=== PATIENT | male | born 1965 ===

== ENCOUNTER 2017-11-30 10:35 | Day surgery (SDC) | payer MEDICAID ==
[2017-11-26 12:06] VITALS: BMI 28.8
[2017-11-30] MEDS ORDERED: Gentamicin 160 MG in Sodium Chloride 0.9% 100 ML IVPB ONE (12:00)
[2017-11-30] MEDS ORDERED: Iohexol 240 (50 ml) ONE (12:11)
[2017-11-30] MEDS ORDERED: Ciprofloxacin 400mg/200ml D5W 400 MG/200 ML BAG IVPB ONE (12:11)
[2017-11-30] MEDS ORDERED: Lidocaine 2% Jelly (Uro-Jet) ONE (12:11)
[2017-11-30] MEDS ORDERED: Propofol 10 mg/ml Inj (20 ML) ONE (12:16)
[2017-11-30] MEDS ORDERED: Midazolam 2 MG/2 ML VIAL ONE (12:16)
--- NOTE | 2017-11-30 12:44 | PCM.SURG1 ---
Surgeon's Initial Post Op Note - Surgeon's Notes Surgeon: [facility] Sales Representative: MAGDY Type of Anesthesia: General LMA Anesthesia Administered By: Staff Pre-Operative Diagnosis: Left oreteral stent Operative Findings: stent Post-Operative Diagnosis: same Operation Performed: Cysto removal of stent Specimen/Specimens Removed: stent Estimated Blood Loss: EBL {In ML}: 0 Blood Products Given: N/A Drains Used: No Drains Post-Op Condition: Good Date of Surgery/Procedure: 11/30/17 Time of Surgery/Procedure: 12:44
[2017-11-30] MEDS ORDERED: HYDROmorphone 0.5 mg/0.5 ml ISec IVP PRN (12:47)
[2017-11-30 13:50] VITALS: RESP 16; TEMP 97.8
[2017-11-30 14:31] VITALS: BP 118/86; PULSE 68; O2SAT 98
--- NOTE | 2017-12-01 05:08 | OP ---
PROCEDURE DATE: 11/30/2017 PREOPERATIVE DIAGNOSIS: Left ureteral stent, status post lithotripsy. POSTOPERATIVE DIAGNOSIS: Left ureteral stent, status post lithotripsy.. PROCEDURE: Cystoscopy and removal of stent. FINDINGS: Stent protruding from the left ureteral orifice. No evidence of calculi in the bladder. DESCRIPTION OF PROCEDURE: The procedure is as follows: The patient was draped and prepped in the usual manner after he was asked to sign a detailed informed consent explaining all risks, limitations, and complications of this procedure. He is aware that he may have colic after the procedure and that the remaining stones in the kidney may pass and cause obstruction in the future requiring reinsertion of a stent. Nonetheless, he insists the stent be removed. The patient was brought into the room, and after prophylactic antibiotic, cystoscoped, a #21 Storz panendoscope. The pendulous and membranous urethra were normal. The prostatic urethra was normal. The bladder was entered atraumatically. There was a stent visualized. There were no stones within the bladder. The tip of the stent was grasped and removed. The patient tolerated the procedure well. He was sent to the recovery area in good condition. He was told to follow up in our office in three weeks. He is aware that there are other stones that need to be treated and he is aware of the negative consequences of not treating any stones. Jeison Neves MD
== END 2017-11-30 14:23 | disposition home or self-care (01) ==
LOC: C.SDS 10:35
PROVIDERS: ATTEND Urology
DX: Z46.6 Encounter for fitting and adjustment of urinary device (principal); N20.0 Calculus of kidney; N20.1 Calculus of ureter; N23 Unspecified renal colic
CPT/HCPCS: 52310; 74018; J0744; J1580